=== PATIENT | male | born 1990 | race Caucasian/White ===

== ENCOUNTER 2019-01-31 22:49 | Emergency (ER) | payer OTHER ==
[2019-01-31 22:58] VITALS: BP 134/83
--- NOTE | 2019-01-31 23:43 | EDPHY ---
H & P Stated Complaint: L testicular worsening over a few days, hx of torsion. No urinary complaint Time Seen by Provider: 01/31/19 22:58 HPI/ROS: Chief complaint: Left testicular discomfort History of present illness: This is a 28-year-old male who presents to the emergency department for left testicular discomfort. He reports the onset of symptoms over the last day. He states the soreness is primarily behind the testicle and not the testicle itself. He denies precipitating factors. He denies alleviating factors. He does state he had a torsion on this testicle a number of years ago that was surgically fixed. He denies other associated signs or symptoms including no urethral discharge, no urinary symptoms. Review of systems: A 10 point review of systems was obtained and other than described above was negative - Personal History Current Tetanus/Diphtheria Vaccine: Yes Current Tetanus Diphtheria and Acellular Pertussis (TDAP): Yes - Medical/Surgical History Hx Asthma: No Hx Chronic Respiratory Disease: No Hx Diabetes: No Hx Cardiac Disease: No Hx Renal Disease: No Hx Cirrhosis: No Hx Alcoholism: No Hx HIV/AIDS: No Hx Splenectomy or Spleen Trauma: No Other PMH: testicular torsion - Social History Smoking Status: Never smoked - Physical Exam Exam: General Appearance: Alert and no distress. Eyes: Pupils equal and round no injection. Respiratory: Chest is non tender, lungs are clear to auscultation. Cardiac: regular rate and rhythm Gastrointestinal: Abdomen is soft and non tender, no masses, bowel sounds normal. Genitourinary: No urethral discharge. The penis and scrotum are unremarkable. The testicles themselves are not edematous and nontender. He does report tenderness to the cord structures behind the left testicle. Right testicle cord structures unremarkable. No hernias appreciated. No adenopathy. Musculoskeletal: Neck is supple and non tender. Extremities have full range of motion and are non tender. Skin: No rashes or lesions. Constitutional: Initial Vital Signs Temperature (C) 36.9 C 01/31/19 22:56 Heart Rate 61 01/31/19 22:56 Respiratory Rate 20 01/31/19 22:56 Blood Pressure 134/83 H 01/31/19 22:56 O2 Sat (%) 95 01/31/19 22:56 O2 Delivery Mode Room Air Allergies/Adverse Reactions: No Known Allergies Allergy (Unverified 01/31/19 22:58) Home Medications: Medication Instructions Recorded NK [No Known Home Meds] 01/31/19 Medical Decision Making - Diagnostics Imaging Results: Imaging Impressions Testicular Ultrasound 01/31/19 22:58 Impression: 1. Subtle increased color-flow enhancement of the left testicle when compared to the right side. This could represent very mild early orchitis. 2. Left-sided varicocele. Findings discussed with SHAYY Haley at 23:34 hour, 01/31/2019. Imaging: Discussed imaging studies w/ call specialist Radiologist ED Course/Re-evaluation: Patient is seen under the supervision of my secondary supervising physician Dr. Apollo Marroquin. Patient presents to the emergency department with left testicular discomfort. He is nontoxic. Urinalysis unremarkable. Ultrasound does show a varicocele which is most consistent with his presentation. Slight increased blood flow to the left testicle. He does not appear to have STI risk factors. However, GC chlamydia cultures are pending. I believe he is appropriate for discharge home. He does have an appointment with a primary care doctor tomorrow morning for recheck. Return precautions are given. Patient voiced understanding and agreement with plan. Differential Diagnosis: Included but not limited to torsion, orchitis, epididymitis, varicocele, urinary tract infection - Data Points Laboratory Results: 01/31/19 01/31/19 23:30 23:30 Urine Color YELLOW Urine Appearance CLEAR Urine pH 6.0 (5.0-7.5) Ur Specific [place] 1.025 (1.002-1.030) Urine Protein NEGATIVE (NEGATIVE) Urine Ketones NEGATIVE (NEGATIVE) Urine Blood NEGATIVE (NEGATIVE) Urine Nitrate NEGATIVE (NEGATIVE) Urine Bilirubin NEGATIVE (NEGATIVE) Urine Urobilinogen NEGATIVE EU EU (0.2-1.0) Ur Leukocyte Esterase NEGATIVE (NEGATIVE) Urine RBC 1-3 /hpf /hpf (0-3) Urine WBC 0-1 /hpf /hpf (0-3) Ur Epithelial Cells NONE SEEN /lpf /lpf (NONE-1+) Urine Mucus TRACE /lpf /lpf (NONE-1+) Urine Glucose NEGATIVE (NEGATIVE) C.trachomatis RNA (TMA) Pending N.gonorrhoeae RNA (TMA) Pending Departure - Departure Disposition: Home, Routine, Self-Care Clinical Impression: Testicle pain Condition: Good Instructions: Varicocele (ED), Testicle Pain (ED) Additional Instructions: Follow-up with her primary care doctor tomorrow as already arranged Use ibuprofen 600 mg 3 times a day for the next 2-3 days for pain control Wear supportive underwear If symptoms worsen or new symptoms develop return to the emergency room for recheck Referrals: NONE *PRIMARY CARE P,. [Primary Care Provider] - As per Instructions Shira Arnett MD [Medical Doctor] - As per Instructions
[2019-02-01 12:24] LABS: GC AMPLIFICATION GENPROBE NEGATIVE (NEGATIVE)
== END 2019-01-31 23:45 | disposition home or self-care (01) ==
DX: I86.1 Scrotal varices (principal)